=== PATIENT | female | born 1975 | race Caucasian/White ===

== ENCOUNTER → 2024-01-20 07:40 | Outpatient (REF) | payer MEDICARE, MEDICAID, SELFPAY | LOC: EMG 07:40 | PROVIDERS: ATTENDING PHYSICIAN Physician Assistant; FAMILY PHYSICIAN Nurse Practitioner Family | DX: M79.642 Pain in left hand (principal); R20.0 Anesthesia of skin | CPT/HCPCS: 95886; 95909 ==

== ENCOUNTER → 2024-02-02 06:41 | Day surgery (SDC) | payer MEDICARE, MEDICAID, SELFPAY | LOC: GI 06:41 | PROVIDERS: ATTENDING PHYSICIAN Internal Medicine Gastroenterology | DX: K62.5 Hemorrhage of anus and rectum (principal); Z53.9 Procedure and treatment not carried out, unspecified reason; R12 Heartburn | CPT/HCPCS: 45378; 43235 ==

== ENCOUNTER → 2024-04-06 06:29 | Day surgery (SDC) | payer MEDICARE, SELFPAY | LOC: GI 06:29 | PROVIDERS: ATTENDING PHYSICIAN Internal Medicine Gastroenterology | DX: K92.1 Melena (principal); R19.4 Change in bowel habit; K64.8 Other hemorrhoids | CPT/HCPCS: 45378 ==